=== PATIENT | male | born 1980 | race Hispanic/Latino ===

== ENCOUNTER → 2021-08-12 14:57 | Outpatient (CLI) | payer OTHER, SELFPAY ==
[2021-08-12 15:54] LABS: COVID19 -Nasal RAPID Negative (Negative)
== END ==
PROVIDERS: Referring Provider Internal Medicine; Visit Provider Internal Medicine
DX: Z20.822 Contact with and (suspected) exposure to COVID-19 (principal)
CPT/HCPCS: 87635; C9803

== ENCOUNTER → 2021-08-13 09:04 | Outpatient (CLI) | payer OTHER, SELFPAY ==
--- NOTE | 2021-08-19 09:44 | PM.PFT.1 ---
Pulmonary Function Test Referral & Results Date Patient Seen: 08/13/21 Requesting provider: Paco Bah Indication: Dyspnea Results: The spirometry demonstrates an FVC of 5.06 L which is 99% of predicted. The FEV1 was measured at 4.83 L which is 120% of predicted. The FEV1/FVC ratio was 96 which is 120% of predicted. Following the administration of bronchodilator there was no appreciable change to above normal numbers Lung volumes show an SVC of 6.04 L which is 123% of predicted. The diffusing capacity was measured at 36.10 which is 116% of predicted. The maximum voluntary ventilation was minimally reduced Interpretation: This study demonstrates normal pulmonary function There is a minimal reduction in maximum voluntary ventilation, which if real, may suggest the presence of neuromuscular disease given lack of other abnormalities in spirometry. Clinical correlation suggested
== END ==
DX: R06.09 Other forms of dyspnea (principal); J98.8 Other specified respiratory disorders
CPT/HCPCS: 94060; 94726; 94729